=== PATIENT | female | born 1955 | race Caucasian/White ===

== ENCOUNTER 2017-02-05 00:42 | Emergency (ER) | payer MEDICARE, MEDICAID ==
[~2017-02-05] VITALS: Ht 165.1 cm; Wt 74.8 kg
--- NOTE | 2017-02-05 00:50 | NUR ---
PT A/OX4 BREATHING EFFORTLESSLY ON ROOM AIR, PT STATES SHE HAS BEEN FEELING ANXIOUS X 1 DAY, PT ON MONITOR, LABS DRAWN, MADE AWARE WILL CONTINUE TO MONITOR.
[2017-02-05] MEDS ORDERED: LORAZEPAM 1 MG TABLET ONE (00:54)
[2017-02-05] MEDS ORDERED: LORAZEPAM 1 MG TABLET PO ONE (01:00)
[2017-02-05 01:17] LABS: BASOPHILS % (AUTO) 0.1 % (0.0-2.0); EOSINOPHILS # (AUTO) 0.3 /CMM (0.0-0.7); HEMATOCRIT 41 % (33-45); HEMOGLOBIN 13.2 g/dL (11.5-14.8); LYMPHOCYTES # (AUTO) 4.2 /CMM (0.8-4.8); LYMPHOCYTES % (AUTO) 38.4 % (20.0-44.0); MEAN CORPUSCULAR HEMOGLOBIN 27 PG (26.0-33.0); MEAN CORPUSCULAR HGB CONC 32 g/dl (31.0-36.0); MEAN CORPUSCULAR VOLUME 84 fL (82-100); MONOCYTES # (AUTO) 0.8 /CMM (0.1-1.30); MONOCYTES % (AUTO) 7.4 % (2.0-12.0); NEUTROPHILS # (AUTO) 5.6 /CMM (1.8-8.9); NEUTROPHILS % (AUTO) 51.1 % (43.0-81.0); PLATELET COUNT (AUTO) 358 /CMM (150-450); RED BLOOD CELL COUNT(AUTO) 4.88 MIL/uL (4.0-5.2)
[2017-02-05 01:26] LABS: CALCIUM, SERUM 8.6 mg/dL (8.5-10.1); CARBON DIOXIDE 28 mmol/L (21-32); CHLORIDE 107 mmol/L (98-107); CREATININE 0.9 mg/dL (0.6-1.3); GFR 64 mL/min (>60); GLUCOSE 109 mg/dL (74-106); SODIUM SERUM 142 mmol/L (136-145); UREA NITROGEN, BLOOD 17 mg/dL (7-18)
--- NOTE | 2017-02-05 01:29 | NUR ---
PT FRIEND BEATRIZ WAS CALLED PER PT REQUEST [phone]
[2017-02-05 01:32] LABS: INR 0.96 (0.87-1.13); PROTHROMBIN TIME 10.2 SECS (9.5-12.7)
[2017-02-05 01:35] LABS: TROPONIN I < 0.017 ng/mL (0.00-0.056)
--- NOTE | 2017-02-05 02:35 | NUR ---
[employer] CALLED, SPOKE WITH AUTOMATIC CLIPPER AND STRIPPER [phone] REGARDING PT REPORT.
[2017-02-05 02:44] VITALS: BP 114/74
== END 2017-02-05 02:45 | disposition home or self-care (01) ==
LOC: ER 00:45
DX: F41.9 Anxiety disorder, unspecified (principal)
CPT/HCPCS: 36415; 71010; 80048; 84484; 85025; 85730; 93005; 99285; A4606; Z7610

== ENCOUNTER 2017-07-09 20:12 | Emergency (ER) | payer MEDICARE, MEDICAID ==
[~2017-07-09] VITALS: Ht 165.1 cm; Wt 77.1 kg
[2017-07-09 20:55] VITALS: BP 126/86
== END 2017-07-10 00:59 | disposition home or self-care (01) ==
LOC: ER 20:16
DX: S92.591A Other fracture of right lesser toe(s), initial encounter for closed fracture (principal); S51.852A Open bite of left forearm, initial encounter; F41.9 Anxiety disorder, unspecified; W55.01XA Bitten by cat, initial encounter; Y93.89 Activity, other specified; Y92.89 Other specified places as the place of occurrence of the external cause; Y99.8 Other external cause status
CPT/HCPCS: 73660-TC; A4606; A6402; Z7610

== ENCOUNTER 2017-08-07 13:22 | Inpatient (IN) | payer MEDICARE, MEDICAID ==
[~2017-08-07] VITALS: Ht 162.6 cm; Wt 77.1 kg
--- NOTE | 2017-08-07 13:30 | NUR ---
FLU LIKE SYMPTOMS SINCE SUNDAY TOOK TYLENOL WITH NO RELIEF
[2017-08-07] MEDS ORDERED: ACETAMINOPHEN ES 500 MG TABLET PO ONE (14:30)
[2017-08-07] MEDS ORDERED: IV NS 0.9% 1,000 ML BAG IV ONE ×2 (14:30→16:30)
[2017-08-07 14:39] LABS: BASOPHILS # (AUTO) 0.1 /CMM (0.0-0.2); BASOPHILS % (AUTO) 0.7 % (0.0-2.0); EOSINOPHILS % (AUTO) 0.3 % (0.0-6.0); HEMATOCRIT 42 % (33-45); HEMOGLOBIN 13.6 g/dL (11.5-14.8); LYMPHOCYTES % (AUTO) 25.3 % (20.0-44.0); MEAN CORPUSCULAR HEMOGLOBIN 27 PG (26.0-33.0); MEAN CORPUSCULAR HGB CONC 32 g/dl (31.0-36.0); MEAN CORPUSCULAR VOLUME 85 fL (82-100); MONOCYTES # (AUTO) 0.6 /CMM (0.1-1.30); MONOCYTES % (AUTO) 7.7 % (2.0-12.0); NEUTROPHILS # (AUTO) 5.1 /CMM (1.8-8.9); PLATELET COUNT (AUTO) 310 /CMM (150-450); RDW COEFFICIENT OF VARIATION 13.2 (11.5-15.0); RED BLOOD CELL COUNT(AUTO) 4.96 MIL/uL (4.0-5.2); WHITE BLOOD COUNT (AUTO) 7.8 K/uL (4.3-11.0)
[2017-08-07] MEDS ORDERED: ACETAMINOPHEN ES 500 MG TABLET ONE (14:41)
[2017-08-07 14:51] LABS: CALCIUM, SERUM 8.7 mg/dL (8.5-10.1); CARBON DIOXIDE 28 mmol/L (21-32); CHLORIDE 104 mmol/L (98-107); CREATININE 0.9 mg/dL (0.6-1.3); GLUCOSE 113 mg/dL (74-106); POTASSIUM 3.9 mmol/L (3.5-5.1); SODIUM SERUM 138 mmol/L (136-145); UREA NITROGEN, BLOOD 10 mg/dL (7-18)
[2017-08-07] MEDS ORDERED: LEVOFLOXACIN 500 MG /D5W 100ML 500 MG/100 ML PIGGYBACK IV ONE (15:30)
[2017-08-07] MEDS ORDERED: CEFTRIAXONE 1GM BAG (ER ONLY) 1 GM/50 ML PIGGYBACK IV ONE (15:30)
[2017-08-07] MEDS ORDERED: CEFTRIAXONE 1GM BAG (ER ONLY) 50 ML IV ONE (15:34)
[2017-08-07] MEDS ORDERED: LEVOFLOXACIN 500 MG /D5W 100ML 100 ML IV ONE (15:34)
[2017-08-07] MEDS ORDERED: PRAM0.253 PO (15:45)
[2017-08-07] MEDS ORDERED: Z GUARD REMEDY 2 OZ OINT TP PRN (17:00)
[2017-08-07] MEDS ORDERED: HYDROCODONE/APAP 5/325MG 1 EACH TABLET PO PRN (17:00)
[2017-08-07] MEDS ORDERED: MAGNESIUM HYDROXIDE 30 ML UDC PO PRN (17:00)
[2017-08-07] MEDS ORDERED: ONDANSETRON HCL/PF 4 MG/2 ML VIAL IVP PRN (17:00)
[2017-08-07] MEDS ORDERED: ZOLPIDEM TARTRATE 5 MG TABLET PO PRN (17:00)
[2017-08-07] MEDS ORDERED: MAG HYDROX/AL HYDROX/SIMETH 30 ML UDC PO PRN (17:00)
--- NOTE | 2017-08-07 17:00 | NUR ---
GAVE REPORT TO [facility] ROOM 311-1 TELEMETRY MICHAEL WINTER ADMITTING DX PNEUMONIA
[2017-08-07] MEDS ORDERED: diphenhydrAMINE HCL 50 MG/ML VIAL ONE (17:08)
[2017-08-07 17:15] LABS: BILIRUBIN,DIRECT 0.1 mg/dL (0.0-0.2); BILIRUBIN,TOTAL 0.2 mg/dL (0.2-1.0)
[2017-08-07 17:30] VITALS: BP 115/69
[2017-08-07] MEDS ORDERED: diphenhydrAMINE HCL 50 MG/ML VIAL IV ONE (17:30)
--- NOTE | 2017-08-07 17:30 | NUR ---
NEGATIVE STRIPPER NOTES 61 YEARS OLD FEMALE ADMITTED FROM HOME. PATIENT IS A/O X4, AMBULATORY. V/S TAKEN AND RECORDED, ELEVATED TEMP UPON TRANSFERRED FROM ER. MADE COMFORTABLE IN BED, LEADS APPLIED FOR TELE MONITOR. IV IN RIGHT AC G20 PATENT AND INTACT, FLUSHES WELL. PATIENT WITH EPISODE OF NON PRODUCTIVE COUGHING, NO NOTED SPUTUM. PLACE CALL LIGHT WITHIN REACH. WILL CONT TO MONITOR.
[2017-08-07 17:31] VITALS: BP 144/67
[2017-08-07] MEDS: IV NS 0.9% 1,000 ML IV PRN (17:35)
--- NOTE | 2017-08-07 17:45 | NUR ---
SKIN INTACT, VOIDED WITHOUT DIFFICULTY. SINUS RHYTHM IN THE MONITOR HR 79. NO C/O ANY DISCOMFORT.
[2017-08-07] MEDS: ACETAMINOPHEN 325 MG TABLET PO PRN ×2 (18:35→23:59)
--- NOTE | 2017-08-07 19:30 | NUR ---
MEDIA AID CLOSING PATIENT IN BED, A/O X4. BREATHING EVEN AND NON LABORED, WITH EPISODE OF NON PRODUCTIVE COUGH. PATIENT IS COOPERATIVE. ON TELE MONITOR SINUS RHYTHM HR 80, NO SOB. IV NS INFUSING AT 75ML/HR. HAS GOOD APPETITE, CONSUMED 80% OF HER MEAL. OFFERED PO FLUIDS TO DRINK. CALL LIGHT WITHIN REACH. ENDORSED TO MAILING SECTION CLERK RN FOR TEOFILO.
--- NOTE | 2017-08-07 19:30 | NUR ---
RN INITIAL NOTES RECEIVED PATIENT IN BED, AWAKE, ALERT AND ORIENTED X4, ABLE TO VERBALIZE ALL NEEDS. PATIENT DENIES ANY PAIN, BUT C/O PRODUCTIVE COUGH. WILL ADMINISTER PRESCRIBED COUGH MEDICINE. BREATHING EVEN AND NONLABORED, SOMETIMES COUGHING UPON EXERTION. RIGHT AC IV PATENT AND INTACT, FLUSHED WITH NS, FREE FROM ANY S/S OF INFILTRATION OR PHLEBITIS. IVF ONGOING PRESCRIBED. WILL CONTINUE TO CLOSELY MONITOR THE PATIENT
[2017-08-07 20:00] VITALS: BP 135/64
--- NOTE | 2017-08-07 20:00 | NUR ---
RN NOTES PATIENT NOTED WITH FEVER, TYLENOL NOT DUE. COOLING MEASURES INITIATED SUCH ICE PACKS, ENCOURAGED PO INTAKE OF COOL FLUIDS. WILL CONTINUE TO CLOSELY MONITOR AND ADMINISTER ANTIPYRETICS WHEN DUE
[2017-08-07 20:28] VITALS: BP 135/64
[2017-08-07] MEDS: GUAIFENESIN/CODEINE 10 ML UDC PO PRN (20:44)
[2017-08-08 00:25] VITALS: BP 121/66
--- NOTE | 2017-08-08 00:40 | NUR ---
RN NOTES PATIENT CONTINUES WITH FEVER. TYLENOL ADMINISTERED. ICE PACKS REAPPLIED. OFFERED COOL BATH, BUT PATIENT REFUSED. WILL CONTINUE TO CLOSELY MONITOR
[2017-08-08] MEDS: ACETAMINOPHEN 325 MG TABLET PO PRN ×2 (05:59→16:30)
[2017-08-08] MEDS: GUAIFENESIN/CODEINE 10 ML UDC PO PRN ×3 (05:59→23:21)
[2017-08-08] MEDS: IV NS 0.9% 1,000 ML IV PRN ×2 (06:02→23:03)
--- NOTE | 2017-08-08 06:43 | NUR ---
RN CLOSING NOTES PATIENT CONTINUES NOW WITH LOW GRADE FEVER. PATIENT GIVEN ANTIPYRETICS AND COUGH SYRUP @ 0600, STATES SHE "FEELS A LOT BETTER THAN BEFORE." WILL ENDORSE THE PATIENT TO THE AM SHIFT NURSE FOR TEOFILO
[2017-08-08 07:22] LABS: BASOPHILS % (AUTO) 0.5 % (0.0-2.0); EOSINOPHILS % (AUTO) 0.2 % (0.0-6.0); HEMATOCRIT 39 % (33-45); HEMOGLOBIN 12.6 g/dL (11.5-14.8); LYMPHOCYTES # (AUTO) 2.1 /CMM (0.8-4.8); LYMPHOCYTES % (AUTO) 29.4 % (20.0-44.0); MEAN CORPUSCULAR HEMOGLOBIN 28 PG (26.0-33.0); MEAN CORPUSCULAR HGB CONC 33 g/dl (31.0-36.0); MEAN CORPUSCULAR VOLUME 86 fL (82-100); MONOCYTES # (AUTO) 0.6 /CMM (0.1-1.30); MONOCYTES % (AUTO) 8.8 % (2.0-12.0); NEUTROPHILS # (AUTO) 4.3 /CMM (1.8-8.9); NEUTROPHILS % (AUTO) 61.1 % (43.0-81.0); PLATELET COUNT (AUTO) 247 /CMM (150-450); RDW COEFFICIENT OF VARIATION 14.5 (11.5-15.0); RED BLOOD CELL COUNT(AUTO) 4.51 MIL/uL (4.0-5.2); WHITE BLOOD COUNT (AUTO) 7.1 K/uL (4.3-11.0)
[2017-08-08 07:23] LABS: CALCIUM, SERUM 8.6 mg/dL (8.5-10.1); CREATININE 0.9 mg/dL (0.6-1.3); MAGNESIUM 1.9 mg/dL (1.8-2.4); PHOSPHORUS 3.2 mg/dL (2.5-4.9); POTASSIUM 3.8 mmol/L (3.5-5.1)
[2017-08-08 07:35] LABS: THYROID STIMULATING HORMONE 0.394 uIU/mL (0.358-3.74)
[2017-08-08 08:02] VITALS: BP 112/70
[2017-08-08] MEDS ORDERED: LEVOFLOXACIN 750 MG /D5W 150ML PIGGYBACK IV SCH (09:00)
[2017-08-08] MEDS ORDERED: PRAMIPEXOLE DI-HCL 0.25 MG TABLET PO SCH ×2 (09:00→20:00)
[2017-08-08] MEDS: FAMOTIDINE (20 MG) 20 MG TABLET PO SCH (09:15)
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
[2017-08-08] MEDS: BACITRACIN/POLYMYXIN B 15 GM TUBE TP SCH ×2 (14:08→17:05)
--- NOTE | 2017-08-08 15:19 | NUR ---
MED. FOR COUGH WITH ROBITUSSIN.
[2017-08-08 16:00] VITALS: BP 125/58
--- NOTE | 2017-08-08 16:00 | NUR ---
GIVEN TYLENOL 650 MG FOR TEMP.
[2017-08-08] MEDS ORDERED: AZITHROMYCIN 250 MG TABLET PO SCH (17:00)
[2017-08-08] MEDS ORDERED: CEFTRIAXONE 1 G in IV D5W 50 ML IV SCH (17:00)
--- NOTE | 2017-08-08 19:25 | NUR ---
RN NOTES PT AWAKE, ALERT AND ORIENTED X4, DENIES ANY PAIN AND DISCOMFORT. NO SOB, NOT IN DISTRESS, ON ROOM AIR WITH GOOD SATURATION. IV ACCESS ON LEFT WRIST PATENT AND INTACT WITH ONGOING IVF INFUSING WELL. KEPT COMFORTABLE AND ATTENDED. WILL CONTINUE TO MONITOR PT.
[2017-08-08 20:00] VITALS: BP 101/70
--- NOTE | 2017-08-08 23:21 | NUR ---
RN NOTES PT HEARD COUGHING , PRODUCTIVE, WITH WHITISH SECRETION NOTED. rOBITUSSIN COUGH SYRUP GIVEN. WILL CONTINUE TO MONITOR PT.
[2017-08-09] MEDS: GUAIFENESIN/CODEINE 10 ML UDC PO PRN (05:45)
--- NOTE | 2017-08-09 05:46 | NUR ---
RN NOTES PT IS COUGHING, PRODUCTIVE WITH WHITE SECRETIONS, rOBITUSSIN COUGH SYRUP GIVEN PO AND TOLERATED WELL. WILL CONTINUE TO MONITOR PT.
--- NOTE | 2017-08-09 07:17 | NUR ---
RN NOTES PT AWAKE, HOB ELEVATED, DENIES SOB, ON ROOM AIR WITH GOOD SATURATION. VITAL SIGNS STABLE, AFEBRILE WITH LATEST TEMP AT 98.3. COUGH AT TIMES, PRODUCTIVE WITH WHITE THICK SECRETIONS. ALL NEEDS ATTENDED. WILL ENDORSE TO MORNING RN FOR CONTINUITY OF CARE.
--- NOTE | 2017-08-09 07:35 | NUR ---
RN OPENING NOTES RECEIVED PT. IN BED A&OX4. BREATHING UNLABORED, AND EVENLY ON ROOM AIR. NO S/S OF ACUTE DISTRESS. IV FLUIDS RUNNING AT 75ML/HR. BED IS IN LOWEST, LOCKED POSITION, 2 SIDE RAILS UP, AND INSTRUCTED PT. TO USE CALL LIGHT FOR ASSISTANCE. WILL CONTINUE TO ASSESS AND MONITOR.
[2017-08-09 08:22] VITALS: BP 130/84
[2017-08-09 08:26] LABS: BASOPHILS % (AUTO) 0.6 % (0.0-2.0); EOSINOPHILS # (AUTO) 0.1 /CMM (0.0-0.7); EOSINOPHILS % (AUTO) 1.4 % (0.0-6.0); HEMATOCRIT 37 % (33-45); LYMPHOCYTES # (AUTO) 2.4 /CMM (0.8-4.8); LYMPHOCYTES % (AUTO) 36.6 % (20.0-44.0); MEAN CORPUSCULAR HEMOGLOBIN 27 PG (26.0-33.0); MEAN CORPUSCULAR HGB CONC 32 g/dl (31.0-36.0); MEAN CORPUSCULAR VOLUME 85 fL (82-100); MONOCYTES # (AUTO) 0.9 /CMM (0.1-1.30); MONOCYTES % (AUTO) 13.3 % (2.0-12.0); NEUTROPHILS # (AUTO) 3.2 /CMM (1.8-8.9); NEUTROPHILS % (AUTO) 48.1 % (43.0-81.0); PLATELET COUNT (AUTO) 266 /CMM (150-450); RDW COEFFICIENT OF VARIATION 14.1 (11.5-15.0); RED BLOOD CELL COUNT(AUTO) 4.38 MIL/uL (4.0-5.2); WHITE BLOOD COUNT (AUTO) 6.6 K/uL (4.3-11.0)
[2017-08-09 08:44] LABS: CALCIUM, SERUM 8.7 mg/dL (8.5-10.1); CREATININE 0.8 mg/dL (0.6-1.3)
[2017-08-09 08:57] VITALS: BP 130/84
--- NOTE | 2017-08-09 09:00 | NUR ---
RN NOTES WOUND CARE PERFORMED PER ORDERS.
[2017-08-09] MEDS: FAMOTIDINE (20 MG) 20 MG TABLET PO SCH (09:14)
[2017-08-09] MEDS: BACITRACIN/POLYMYXIN B 15 GM TUBE TP SCH (09:14)
--- NOTE | 2017-08-09 11:15 | NUR ---
INSTRUCTOR PILOT NOTES PT. WAS PROVIDED EDUCATION, AND INSTRUCTIONS ON DISCHARGE, AND VERBALIZED UNDERSTANDING. ID BAND AND IV WAS REMOVED WITHOUT COMPLICATIONS. DISCHARGE PACKET WAS GIVEN TO PT. PICTURES TAKEN ON SKIN ASSESSMENT AND PLACED IN PT. CHART. BELONGINGS LIST WAS CHECKED AND SIGNED.
--- NOTE | 2017-08-09 11:20 | NUR ---
ENGINEERING INSTRUCTOR PT. LEFT ROOM IN MEDICALLY STABLE CONDITION ACCOMPANIED BY ALESSIO. PT. REPORTED THAT SHE WILL LEAVE BY PRIVATE CAR.
== END 2017-08-09 11:30 | disposition home or self-care (01) | DRG 194 ==
LOC: ER 13:23 → TELE 16:52 → MED 08-08 14:47
PROVIDERS: ADMIT Nurse Practitioner Acute Care; ATTEND Nurse Practitioner Acute Care
DX: J15.9 Unspecified bacterial pneumonia (principal); E87.2 Acidosis; E44.1 Mild protein-calorie malnutrition; F41.9 Anxiety disorder, unspecified; Z88.1 Allergy status to other antibiotic agents; Z68.29 Body mass index [BMI] 29.0-29.9, adult; E66.9 Obesity, unspecified
CPT/HCPCS: 36415; 71010-TC; 80048-TC; 80061-TC; 82247-TC; 82248-TC; 83605-TC; 83735-TC; 84100-TC; 84443-TC; 85025-TC; 87040-TC; 87081-TC; 87400; A6402; J0696; J1200; J1956; J7030; J7060; Z7610

== ENCOUNTER 2017-10-20 18:31 | Emergency (ER) | payer MEDICARE, MEDICAID ==
[~2017-10-20] VITALS: Ht 165.1 cm; Wt 78.5 kg
[~2017-10-20 18:31] MED LIST: PRAM0.253 PO
[2017-10-20 18:35] VITALS: BP 133/78
[2017-10-20] MEDS ORDERED: IBUPROFEN 600 MG TABLET PO ONE (19:36)
[2017-10-20] MEDS: IBUPROFEN 600 MG TABLET PO ONE (19:39)
== END 2017-10-20 20:10 | disposition home or self-care (01) ==
LOC: ER 18:36
DX: M25.562 Pain in left knee (principal); Z88.1 Allergy status to other antibiotic agents
CPT/HCPCS: 73564; 99284; A4606; Z7610

== ENCOUNTER 2017-12-23 20:14 | Emergency (ER) | payer MEDICARE, MEDICAID ==
[~2017-12-23] VITALS: Ht 165.1 cm; Wt 78.5 kg
[2017-12-23 20:14] VITALS: BP 142/88
--- NOTE | 2017-12-23 20:40 | NUR ---
Note garybrandon in EDM - 12/23/17 at 2108 by TORI 62 [facility]O [facility]. PATIENT IS CONFUSED AT THIS TIME, PER DAUGHTER PATIENT IS NORMALLY ALERT AND ORIENTED. PATIENT DS TO ER BED, SKIN IS WARM TO THE TOUCH. PATIENT GOWNED,PLACED ON CARDIAC MOTITOR. AWAITNG ORDERS FROM PROVIDER, WILL CONTINUE TO MONITOR
[2017-12-23] MEDS ORDERED: ALPRAZOLAM 0.25 MG TABLET PO ONE (21:00)
[2017-12-23] MEDS ORDERED: ALPRAZOLAM 0.25 MG TABLET ONE (21:09)
== END 2017-12-23 21:14 | disposition home or self-care (01) ==
LOC: ER 20:17
DX: T74.11XA Adult physical abuse, confirmed, initial encounter (principal); F41.9 Anxiety disorder, unspecified; R07.89 Other chest pain; R06.02 Shortness of breath; Z88.1 Allergy status to other antibiotic agents; Z60.2 Problems related to living alone
CPT/HCPCS: 99284; A4606; Z7610

== ENCOUNTER 2017-12-24 00:54 | Emergency (ER) | payer MEDICARE, MEDICAID ==
[~2017-12-24] VITALS: Ht 165.1 cm; Wt 78.5 kg
[2017-12-24] MEDS ORDERED: ONDANSETRON HCL/PF 4 MG/2 ML VIAL IM ONE (01:30)
[2017-12-24 05:08] VITALS: BP 127/77
--- NOTE | 2017-12-24 05:38 | NUR ---
Patient discharged to for transport home in stable condition. Written and verbal after care instructions given. Patient verbalizes understanding of instruction. Pt ambulatory with a steady gait. VSS, NAD noted on DC. Denies complaint on DC.
== END 2017-12-24 05:39 | disposition home or self-care (01) ==
LOC: ER 00:55
DX: F10.129 Alcohol abuse with intoxication, unspecified (principal); Z88.1 Allergy status to other antibiotic agents; Z98.890 Other specified postprocedural states
CPT/HCPCS: 82962; 99283; A4606; Z7610

== ENCOUNTER 2020-01-04 21:02 | Emergency (ER) | payer MEDICARE, OTHER ==
[~2020-01-04] VITALS: Ht 162.6 cm; Wt 79.4 kg
--- NOTE | 2020-01-04 21:46 | NUR ---
PATIENT CAME TO ER BED 10 C/O SORE THROAT FOR 1 DAY. PATIENT STATES THAT SHE HAD A FEVER AT HOME AND SHE TOOK ASPIRIN. AAOX4. NO SOB. BREATHING EVENLY AND UNLABORED ON ROOM AIR.
--- NOTE | 2020-01-04 21:53 | NUR ---
strep test and flu sample taken to lab for testing
[2020-01-04] MEDS ORDERED: KETOROLAC TROMETHAMINE INJ 30 MG/ML VIAL ONE (21:54)
[2020-01-04] MEDS ORDERED: DEXAMETHASONE SOD PHOSPHATE 10 MG/ML VIAL ONE (21:54)
[2020-01-04] MEDS: KETOROLAC TROMETHAMINE INJ 60 MG/2 ML VIAL IM ONE (22:04)
[2020-01-04] MEDS: DEXAMETHASONE SOD PHOSPHATE 4 MG/ML VIAL IM ONE (22:04)
[2020-01-04] MEDS ORDERED: ACETAMINOPHEN ES 500 MG TABLET ONE (22:06)
[2020-01-04] MEDS: ACETAMINOPHEN 325 MG TABLET PO ONE (22:08)
[2020-01-04] MEDS ORDERED: AMOXICILLIN TRIHYDRATE 250 MG CAPSULE ONE (23:06)
[2020-01-04] MEDS: AMOXICILLIN TRIHYDRATE 250 MG CAPSULE PO ONE (23:18)
[2020-01-04 23:21] VITALS: BP 122/78
== END 2020-01-04 23:22 | disposition home or self-care (01) ==
LOC: ER 21:03
DX: J02.9 Acute pharyngitis, unspecified (principal); Z98.890 Other specified postprocedural states; Z88.1 Allergy status to other antibiotic agents; Z60.2 Problems related to living alone
CPT/HCPCS: 87070; 87804 ×2; 87880; 96372 ×2; 99284; J1100; J1885; 86403-TC

== ENCOUNTER 2020-04-28 16:34 | Emergency (ER) | payer MEDICARE, OTHER ==
[~2020-04-28] VITALS: Ht 167.6 cm; Wt 91.2 kg
--- NOTE | 2020-04-28 16:58 | NUR ---
PT TO ED BED 02. C/O R SIDED RIB AREA PAIN S/P SLIP AND FALL WHILE IN THE TUB LAST NIGHT. PT DENIES HEAD INJURY. STATES PAIN WHEN TRYING TO MOVE. STABLE VITALS. AWAITING MD MATHEWS.
--- NOTE | 2020-04-28 17:02 | NUR ---
DR DONALDSON AT BEDSIDE FOR EVAL.
[2020-04-28] MEDS ORDERED: ACETAMINOPHEN 325 MG TABLET ONE (17:08)
--- NOTE | 2020-04-28 17:12 | NUR ---
RADIOLOGY AT BEDSIDE FOR CHEST XRAY.
[2020-04-28] MEDS ORDERED: ACETAMINOPHEN 325 MG TABLET PO ONE (17:30)
[2020-04-28 17:56] VITALS: BP 119/79
[2020-04-28] MEDS ORDERED: PRAM0.258 MT (18:05)
[2020-04-28] MEDS ORDERED: ALPR0.255 MT (18:05)
== END 2020-04-28 18:30 | disposition home or self-care (01) ==
LOC: ER 16:47
DX: S22.31XA Fracture of one rib, right side, initial encounter for closed fracture (principal); E66.8 Other obesity; Z68.30 Body mass index [BMI] 30.0-30.9, adult; Z98.890 Other specified postprocedural states; Z88.1 Allergy status to other antibiotic agents; Z60.2 Problems related to living alone; Z79.899 Other long term (current) drug therapy; W01.198A Fall on same level from slipping, tripping and stumbling with subsequent striking against other object, initial encounter; Y93.89 Activity, other specified; Y92.89 Other specified places as the place of occurrence of the external cause; Y99.8 Other external cause status
CPT/HCPCS: 71045-TC

== ENCOUNTER 2025-09-27 13:11 | Emergency (ER) | payer MEDICARE, OTHER ==
[~2025-09-27] VITALS: Ht 165.1 cm; Wt 81.6 kg
[~2025-09-27 13:11] MED LIST changes: +ALPR0.255 MT; -PRAM0.253 PO; +PRAM0.258 MT
[2025-09-27 13:27] VITALS: TEMP 97.9
[2025-09-27 13:57] LABS: PLATELET COUNT (AUTO) 413 K/uL (150-450); RED BLOOD CELL COUNT(AUTO) 3.92 MIL/uL (4.0-5.2); RED CELL DISTRIBUTION WIDTH 16.6 % (11.5-15.0); WHITE BLOOD COUNT (AUTO) 7.4 K/uL (4.3-11.0)
[2025-09-27 14:03] LABS: CALCIUM, SERUM 8.4 mg/dL (8.5-10.1); CREATININE 0.8 mg/dL (0.6-1.3); SODIUM SERUM 143 mmol/L (136-145); UREA NITROGEN, BLOOD 15 mg/dL (7-18)
[2025-09-27 14:11] LABS: INR 0.99 (0.91-1.10)
[2025-09-27 14:17] LABS: ASPARTATE AMINOTRANSFERASE 36 U/L (15-37); NT-PRO BNP 42 pg/mL (0-125); TOTAL PROTEIN, SERUM 6.7 g/dL (6.4-8.2)
[2025-09-27] MEDS: PRAMIPEXOLE DI-HCL 0.25 MG TABLET PO ONE (15:12)
[2025-09-27 15:59] VITALS: BP 120/69; O2SAT 98
== END 2025-09-27 16:00 | disposition home or self-care (01) ==
LOC: ER 13:21
DX: D64.9 Anemia, unspecified (principal); R53.1 Weakness; R42 Dizziness and giddiness; Z88.1 Allergy status to other antibiotic agents; Z60.2 Problems related to living alone; R06.02 Shortness of breath
CPT/HCPCS: 36415; 71045-TC; 80048-TC; 80076-TC; 83880; 84484-TC; 85025-TC; 85730-TC; 86850-TC